=== PATIENT | male | born 1945 | race Caucasian/White ===

== ENCOUNTER 2018-02-16 08:38 | Day surgery (SDC) | payer MEDICARE ==
[~2018-02-16 08:38] MED LIST: CEFAZOLIN 1 GM INJ; CEFAZOLIN 2 GM/50 ML (PMX) 50 ML IVPB; DEXAMETHASONE 2 MG TAB PO; FENTAnyl 50 MCG/ML VIAL; GABAPENTIN 300 MG CAP PO; GLYCOPYRROLATE 0.4 MG INJ; LIDOCAINE 2% (SDV) 5 ML INJ; MIDAZOLAM 1 MG/ML 2 ML INJ; NEOSTIGMINE 3 MG/3 ML SYRINGE; PROPOFOL 20 ML; ROCURONIUM 50 MG INJ; ROPIVACAINE 0.5 % 30 ML VIAL; TRANEXAMIC ACID 1,000 MG in DEXTROSE 5% 100 ML IVPB; traMADol 50 MG TAB PO
[2018-02-16] MEDS: LACTATED RINGER'S 1,000 ML IV (09:20)
[2018-02-16] MEDS ORDERED: ATROPINE 1 MG/10 ML SYRINGE IV (11:00)
[2018-02-16] MEDS ORDERED: OXYCODONE/ACETAMINOPHEN (5/325) TAB PO ×2 (11:00)
[2018-02-16] MEDS ORDERED: HYDROmorphONE 1 MG/5 ML IV SYRINGE IV ×3 (11:00)
[2018-02-16] MEDS ORDERED: LABETALOL HCL 20MG INJ IV (11:00)
[2018-02-16] MEDS ORDERED: ONDANSETRON 4 MG INJ IV (11:00)
[2018-02-16] MEDS ORDERED: MIDAZOLAM 1 MG/ML 2 ML INJ IV (11:00)
[2018-02-16] MEDS ORDERED: MEPERIDINE 25 MG INJ IV (11:00)
[2018-02-16] MEDS ORDERED: morphine (1 MG/ML) 10ML SYRINGE IV ×3 (11:00)
[2018-02-16] MEDS ORDERED: hydrALAzine 20 MG INJ IV (11:00)
[2018-02-16] MEDS ORDERED: EPHEDrine SULFATE 50 MG/5 ML SYG IV (11:00)
[2018-02-16] MEDS ORDERED: DIPHENHYDRAMINE 50 MG INJ IV (11:00)
[2018-02-16] MEDS ORDERED: FENTAnyl 50 MCG/ML VIAL IV ×2 (11:00)
[2018-02-16] MEDS ORDERED: SUGAMMADEX SODIUM 200 MG/2 ML VIAL IV (11:58)
[2018-02-16] MEDS ORDERED: CEFAZOLIN 1 GM INJ (11:58)
[2018-02-16] MEDS ORDERED: SUCCINYLCHOLINE CHLORIDE 100 MG/5 ML SYG IV (11:58)
== END 2018-02-16 14:20 | disposition home or self-care (01) ==
LOC: SDS 08:38
DX: M25.811 Other specified joint disorders, right shoulder (principal); M13.811 Other specified arthritis, right shoulder; S46.211D Strain of muscle, fascia and tendon of other parts of biceps, right arm, subsequent encounter; X58.XXXD Exposure to other specified factors, subsequent encounter; M75.101 Unspecified rotator cuff tear or rupture of right shoulder, not specified as traumatic
CPT/HCPCS: 29824; 71045